=== PATIENT | male | born 1955 | race Hispanic/Latino ===

== ENCOUNTER 2018-08-24 05:33 | Emergency (ER) | payer BC ==
[~2018-08-24] VITALS: Ht 172.7 cm; Wt 87.5 kg
[2018-08-24 06:53] LABS: BASOPHILS # (AUTO) 0.1 (0.0-0.1); BASOPHILS % 0.4 % (0.0-1.0); EOSINOPHILS # (AUTO) 0.3 (0.0-0.4); EOSINOPHILS % 1.8 % (0.0-6.0); HEMATOCRIT 46.2 % (38.2-49.6); HEMOGLOBIN 15.3 g/dL (14.0-18.0); LYMPHOCYTES # (AUTO) 1.3 (1.0-3.2); LYMPHOCYTES % 8.6 % (18.0-39.1); MEAN CORPUSCULAR HEMOGLOBIN 29.4 pg (28-32); MEAN CORPUSCULAR HGB CONC 33.1 g/dL (31-35); MEAN CORPUSCULAR VOLUME 88.8 fL (81-99); MONOCYTES # (AUTO) 0.9 (0.2-0.8); NEUTROPHILS # (AUTO) 12.8 (2.1-6.9); NEUTROPHILS % 82.8 % (38.7-80.0); PLATELET COUNT 231 x10e3/uL (140-360)
[2018-08-24 06:59] LABS: INR 0.87; PROTHROMBIN TIME 12.6 seconds (11.9-14.5)
[2018-08-24 07:00] LABS: PARTIAL THROMBOPLASTIN TIME 35.1 seconds (23.8-35.5)
[2018-08-24 07:09] LABS: ALANINE AMINOTRANSFERASE 16 IU/L (0-55); ALBUMIN 4.2 g/dL (3.5-5.0); ALBUMIN/GLOBULIN RATIO 1.2 (0.8-2.0); ALKALINE PHOSPHATASE 89 IU/L (40-150); ANION GAP 15.2 mmol/L (8-16); BLOOD UREA NITROGEN 20 mg/dL (7-26); BUN/CREATININE RATIO 17 (6-25); CALCIUM 10.2 mg/dL (8.4-10.2); CARBON DIOXIDE 26 mmol/L (22-29); CHLORIDE 102 mmol/L (98-107); CREATININE, SERUM 1.17 mg/dL (0.72-1.25); EST GLOMERULAR FILTRATION RATE > 60 ML/MIN (60-); GLUCOSE 133 mg/dL (74-118); POTASSIUM 4.2 mmol/L (3.5-5.1); SODIUM 139 mmol/L (136-145)
[2018-08-24 08:30] LABS: BILIRUBIN,URINE NEGATIVE (NEGATIVE); CLARITY,URINE SL CLOUDY (CLEAR); COLOR,URINE STRAW (YELLOW); KETONES,URINE NEGATIVE (NEGATIVE); LEUKOCYTE ESTERASE ,URINE TRACE (NEGATIVE); NITRITE,URINE POSITIVE (NEGATIVE); PROTEIN,URINE DIPSTICK 2+ (NEGATIVE); URINE UROBILINOGEN 0.2 mg/dL (0.2 - 1)
[2018-08-24 08:42] LABS: BACTERIA,URINE MODERATE /HPF; RBC,URINE 21-50 /HPF (0-5)
[2018-08-24] MEDS ORDERED: SODIUM CHLORIDE 0.9% 1000ML 1,000 ML IV SCH (09:00)
[2018-08-24] MEDS ORDERED: CEFTRIAXONE SOD 1 GM VIAL IV SCH (09:00)
--- NOTE | 2018-08-24 12:06 | Diagnostic Imaging Report ---
EXAM: CT Abdomen and Pelvis WITHOUT contrast INDICATION: Hematuria COMPARISON: None. TECHNIQUE: Abdomen and Pelvis was scanned utilizing a multidetector helical scanner without the use of IV contrast. Coronal and sagittal reformations were obtained. IV CONTRAST: None COMPLICATIONS: None RADIATION DOSE: Total DLP: 756 mGy*cm Estimated effective dose: (DLP x 0.015 x size factor) mSv CTDIvol has been reviewed. It is below the limits set by the Radiation Protocol Committee (RPC). Appropriate CT dose reduction techniques were utilized. FINDINGS: Abdomen: Lung Bases: No acute findings. Solid Organs: 18 mm right adrenal adenoma. Nonenhanced images of liver, left adrenal, spleen, and pancreas unremarkable. There is a 54 mm heterogeneous complex cyst or mass in the right kidney. There is a 27 mm exophytic lesion anterior left kidney with indeterminate Hounsfield units 26. No renal or ureteral calculi. Upper GI Tract: No small bowel obstructive change. Vascularity: Advanced vascular calcifications with no aortic aneurysm. Lymph Nodes: No suspicious adenopathy. Other: None. Pelvis: Bladder: Decompressed, limiting evaluation. Other: Transverse diameter prostate 49 mm. Colon: No acute colonic findings. Bones: Advanced lumbar degenerative changes. Sclerotic focus right femoral head, nonspecific. IMPRESSION: 1. 54 mm complex cyst or mass right kidney, concerning for malignancy. Indeterminate exophytic lesion left kidney. Renal mass CT or MRI recommended. 2. Other findings as above. Signed by: Dr. Randell De Luna MD on 08/24/2018 12:03 PM
[2018-08-24] MEDS ORDERED: BACTRIM DS TAB1 EACH PO (12:31)
== END 2018-08-24 12:53 | disposition home or self-care (01) ==
LOC: ER 05:33
DX: R30.0 Dysuria (principal); N30.91 Cystitis, unspecified with hematuria; I10 Essential (primary) hypertension; N28.89 Other specified disorders of kidney and ureter
CPT/HCPCS: 36415; 74176; 80053; 81001; 85025; 85610; 85730; 87086; 87186; 99284; J0696; J7030

== ENCOUNTER → 2020-10-11 | Outpatient (CLI) | payer BC, MEDICARE ==
[~2020-10-11] MED LIST: BACTRIM DS TAB1 EACH PO
== END ==
LOC: RAD 08:40
PROVIDERS: ATTEND Family Medicine
DX: I10 Essential (primary) hypertension (principal)
CPT/HCPCS: 93306

== ENCOUNTER → 2025-06-13 | Outpatient (REF) | payer BC, MEDICARE ==
[~2025-06-13] MED LIST changes: +IOPAMIDOL 370 MG/ML 100 ML INFUS..BTL INJ ONE; +SODIUM CHLORIDE 0.9% 100 ML ONE
[2025-06-13 11:57] LABS: EST GLOMERULAR FILTRATION RATE 44.0 ML/MIN (>=60)
== END ==
LOC: CT 11:12
PROVIDERS: ATTEND Family Medicine
DX: R94.31 Abnormal electrocardiogram [ECG] [EKG] (principal)
CPT/HCPCS: 36415; 75574; 82565; 84520; J7050; Q9967; 75580